=== PATIENT | female | born 1995 | race Caucasian/White ===

== ENCOUNTER 2018-08-31 15:25 | Emergency (ER) | payer OTHER ==
--- NOTE | 2018-08-31 15:33 | ERPHSYRPT ---
- History of Present Illness Time Seen by Provider: 08/31/18 15:32 Source: patient Exam Limitations: no limitations Physician History: 23 y/o white female presents with right hand and forearm pain ever since tatoo placed a few weeks ago. pt was initially seen at [facility] but told to go to ED. denies trauma. denies fever. no aches or pain anywhere else. no repetetive movements Timing/Duration: week(s) (3) Quality: painful Severity: mild Location: hands (right) Possible Causes: no cause identified Associated Symptoms: denies symptoms Allergies/Adverse Reactions: No Known Drug Allergies Allergy (Verified 08/31/18 15:46) Home Medications: Alprazolam 1 mg [Xanax 1 mg] 1 mg PO TIDPRN 03/17/15 [History] Escitalopram Oxalate 10 mg [Lexapro 10 MG] 20 mg PO DAILY 08/31/18 [History] Propranolol HCl 40 mg PO BID 08/31/18 [History] Trazodone HCl 50 mg [Desyrel 50 mg] 50 mg PO HS 08/31/18 [History] Hx Tetanus, Diphtheria Vaccination/Date Given: No Hx Influenza Vaccination/Date Given: No Hx Pneumococcal Vaccination/Date Given: No - Review of Systems Constitutional: No Symptoms Eyes: No Symptoms Ears, Nose, & Throat: No Symptoms Respiratory: No Symptoms Cardiac: No Symptoms Abdominal/Gastrointestinal: No Symptoms Genitourinary Symptoms: No Symptoms Musculoskeletal: Other (right hand pain) Skin: No Symptoms Neurological: No Symptoms Psychological: No Symptoms Endocrine: No Symptoms Hematologic/Lymphatic: No Symptoms Immunological/Allergic: No Symptoms All Other Systems: Reviewed and Negative - Past Medical History Pertinent Past Medical History: Yes Neurological History: No Pertinent History Cardiac History: No Pertinent History Respiratory History: No Pertinent History Endocrine Medical History: Hypoglycemia Musculoskeletal History: No Pertinent History GI Medical History: GERD History: No Pertinent History Psycho-Social History: Anxiety Female Reproductive Disorders: No Pertinent History Other Medical History: CHRONIC NECK PAIN - Past Surgical History Past Surgical History: Yes Neuro Surgical History: No Pertinent History Cardiac: No Pertinent History Respiratory: No Pertinent History Gastrointestinal: No Pertinent History Genitourinary: No Pertinent History Musculoskeletal: Orthopedic Surgery Female Surgical History: No Pertinent History Other Surgical History: tubes in ears, tendons in legs cut, metal in feet - Social History Smoking Status: Current every day smoker How long have you smoked: 1 Exposure to second hand smoke: Yes Drug Use: marijuana Patient Lives Alone: No - Nursing Vital Signs Nursing Vital Signs: Initial Vital Signs Temperature 98.5 F 08/31/18 15:35 Pulse Rate 88 08/31/18 15:35 Blood Pressure 157/98 08/31/18 15:35 O2 Sat by Pulse Oximetry 97 08/31/18 15:35 Pain Scale Pain Intensity 1 - Physical Exam General Appearance: no apparent distress, alert, anxiety Eye Exam: PERRL/EOMI Ears, Nose, Throat Exam: normal ENT inspection, moist mucous membranes Neck Exam: normal inspection, non-tender, supple, full range of motion Respiratory Exam: lungs clear, airway intact, No chest tenderness, No respiratory distress Gastrointestinal/Abdomen Exam: soft, No tenderness Pelvic Exam: not done Rectal Exam: not done Extremity Exam: normal inspection, normal range of motion, pelvis stable Neurologic Exam: alert, oriented x 3, cooperative, manager interface II-XII nml as tested, normal mood/affect, nml cerebellar function, nml station & gait, sensation nml Skin Exam: normal color, warm, dry Lymphatic Exam: No adenopathy SpO2 Interpretation: normal O2 Delivery: Room Air Ordered Tests: Active Orders 24 hr Category Date Time Status BMP Stat Lab 08/31/18 17:15 Completed D-DIMER QUANTITATION Stat Lab 08/31/18 17:15 Completed Lab/Rad Data: Laboratory Result Diagrams 08/31/18 17:15 Laboratory Results 08/31/18 08/31/18 Range/Units 17:15 17:15 D-Dimer < 215 L (215-500) ng/mL Sodium 139 (137-145) mmol/L Potassium 4.0 (3.5-5.1) mmol/L Chloride 106 (98-107) mmol/L Carbon Dioxide 24 (22-30) mmol/L Anion Gap 14.0 (5-15) MEQ/L BUN 13 (7-17) mg/dL Creatinine 0.69 (0.52-1.04) mg/dL Estimated GFR > 60.0 ML/MIN Glucose 89 (74-106) mg/dL Calcium 9.5 (8.4-10.2) mg/dL - Progress Progress: unchanged, re-examined Counseled pt/family regarding: lab results, diagnosis, need for follow-up - Departure Departure Disposition: Home Clinical Impression: Musculoskeletal arm pain Condition: Stable Critical Care Time: No Referrals: ELDER SINCLAIR [Primary Care Provider] - Additional Instructions: use tylenol and ibuprofen for pain. follow up with primary provider for further management
[2018-08-31 17:40] LABS: BLOOD UREA NITROGEN 13 mg/dL (7-17); CHLORIDE 106 mmol/L (98-107); Calcium 9.5 mg/dL (8.4-10.2); Carbon Dioxide 24 mmol/L (22-30); Creatinine 1 0.69 mg/dL (0.52-1.04); Glucose 89 mg/dL (74-106); SODIUM 139 mmol/L (137-145)
[2018-08-31 18:07] VITALS: BP 98/62; PULSE 62; O2SAT 93
== END 2018-08-31 18:25 | disposition home or self-care (01) ==
LOC: ED 15:25
DX: M79.601 Pain in right arm (principal); F12.90 Cannabis use, unspecified, uncomplicated; K21.9 Gastro-esophageal reflux disease without esophagitis; Z79.899 Other long term (current) drug therapy
CPT/HCPCS: 36415; 80048; 85379; 99283